=== PATIENT | female | born 2000 | race Caucasian/White ===

== ENCOUNTER 2023-08-03 10:08 | Emergency (ER) | payer BC ==
[2023-08-03 10:28] VITALS: BP 109/70; PULSE 63; RESP 20; TEMP 98.5
--- NOTE | 2023-08-03 10:37 | ED ---
Female Urogenital HPI - General Chief complaint: Urogenital Stated complaint: Pelvic Pain Time Seen by Provider: 08/03/23 10:36 Source: patient, RN notes reviewed Mode of arrival: ambulatory Limitations: no limitations - History of Present Illness Initial comments: Patient is a 23-year-old female presented ER with a chief complaint of pelvic cramping. Patient states this has been going on for the past 2 weeks. Patient's last menstrual cycle was July 05, 2023. Patient is not currently on any form of control. She does report that if she is trying to be . Patient denies any bleeding or vaginal discharge. SHe denies any concern for STDs but would like to be tested. No other complaints. Last Menstrual Period: 07/05/23 - Related Data Allergies Allergy/AdvReac Type Severity Reaction Status Date / Time No Known Allergies Allergy Verified 08/03/23 10:27 Review of Systems ROS Statement: Those systems with pertinent positive or pertinent negative responses have been documented in the HPI. ROS Other: All systems not noted in ROS Statement are negative. Past Medical History Past Medical History: No Reported History History of Any Multi-Drug Resistant Organisms: None Reported Past Surgical History: No Surgical Hx Reported Past Psychological History: No Psychological Hx Reported Smoking Status: Never smoker Past Alcohol Use History: Occasional Past Drug Use History: None Reported General Exam Limitations: no limitations Course Vital Signs 08/03/23 10:25 Temperature 98.5 F Pulse Rate 63 Respiratory 20 Rate Blood Pressure 109/70 O2 Sat by Pulse 99 Oximetry Medical Decision Making - Medical Decision Making Was pt. sent in by a medical professional or institution (, PA, CORPORATE COMPLIANCE OFFICER, urgent care, hospital, or shelter...) When possible be specific @ -No Did you speak to anyone other than the patient for history (EMS, parent, family, police, friend...)? What history was obtained from this source @ -No Did you review nursing and triage notes (agree or disagree)? Why? @ -I reviewed and agree with nursing and triage notes Were old charts reviewed (outside hosp., previous admission, EMS record, old EKG, old radiological studies, urgent care reports/EKG's, shelter records)? Report findings @ -No old charts were reviewed Differential Diagnosis (chest pain, altered mental status, abdominal pain women, abdominal pain men, vaginal bleeding, weakness, fever, dyspnea, syncope, headache, dizziness, GI bleed, back pain, seizure, CVA, palpatations, mental health, musculoskeletal)? @ -Differential Abdominal Pain Women: Appendicitis, Cholecystitis, diverticulosis, ischemic bowel, pancreatitis, hepatitis, UTI, gastroenteritis, AAA, incarcerated hernia, bowel obstruction, constipation, inflammatory bowel, hepatitis, peptic ulcer disease, splenic infarction, perforated viscus, vulvitis, ovarian torsion, PID, kidney stone, placenta abruption, this is not meant to be an all-inclusive list EKG interpreted by me (3pts min.). @ -None X-rays interpreted by me (1pt min.). @ -None done CT interpreted by me (1pt min.). @ -None done U/S interpreted by me (1pt. min.). @ -Transvaginal ultrasound shows no IUP. What testing was considered but not performed or refused? (CT, X-rays, U/S, labs)? Why? @ -None What meds were considered but not given or refused? Why? @ -Patient refused prophylactic antibiotic PID treatment. Did you discuss the management of the patient with other professionals (professionals i.e. , PA, CORPORATE COMPLIANCE OFFICER, lab, RT, psych nurse, director social, ventilation mechanic, teacher, medical officer psychiatry, rn case management)? Give summary @ -No Was smoking cessation discussed for >3mins.? @ -No Was critical care preformed (if so, how long)? @ -No Were there social determinants of health that impacted care today? How? (Homelessness, low income, unemployed, alcoholism, drug addiction, transportation, low edu. Level, literacy, decrease access to med. care, shelter, rehab)? @ -No Was there de-escalation of care discussed even if they declined (Discuss DNR or withdrawal of care, Hospice)? DNR status @ -No What co-morbidities impacted this encounter? (DM, HTN, Smoking, COPD, CAD, Cancer, CVA, ARF, Chemo, Hep., AIDS, mental health diagnosis, sleep apnea, morbid obesity)? @ - Was patient admitted / discharged? Hospital course, mention meds given and route, prescriptions, significant lab abnormalities, going to OR and other pertinent info. @ -Discharge. Patient is a 23-year-old female presented to ER with a chief complaint of pelvic cramping. Patient denied any vaginal bleeding or discharge. Patient's last menstrual cycle was 07/05/23. History and physical exam were completed. Vitals stable. Urine analysis was completed in which HCG was detected. Labs and US were then obtained at that time. Serum quant was 223 and Hgb stable at 13.8. Transvaginal ultrasound shows no IUP at this time which may be indicative of early , ectopic or spontaneous . I discussed lab findings with patient. I advised her that she should follow-up with APPLICATION PROCESSOR in the next 48 hours for repeat blood work. Referral was given. I also discussed with patient that STD testing results will be called back if positive. Patient refused prophylactic antibiotic PID treatment. Patient will be discharged stable condition with follow-up to APPLICATION PROCESSOR. Return parameters were discussed. Patient expressed understanding and agreement with care plan. Undiagnosed new problem with uncertain prognosis? @ -No Drug Therapy requiring intensive monitoring for toxicity (Heparin, Nitro, Insulin, Cardizem)? @ -No Were any procedures done? @ -No Diagnosis/symptom? @ -/ STD check Acute, or Chronic, or Acute on Chronic? @ -Acute Uncomplicated (without systemic symptoms) or Complicated (systemic symptoms)? @ -Uncomplicated Side effects of treatment? @ -No Exacerbation, Progression, or Severe Exacerbation? @ -No Poses a threat to life or bodily function? How? (Chest pain, USA, OR, pneumonia, PE, COPD, DKA, ARF, appy, cholecystitis, CVA, Diverticulitis, Homicidal, Suicidal, threat to staff... and all critical care pts) @ -No - Lab Data Result diagrams: 08/03/23 12:41 08/03/23 12:41 Lab Results 08/03/23 08/03/23 08/03/23 Range/Units 10:45 10:45 12:41 WBC 5.9 (3.8-10.6) k/uL RBC 4.02 (3.80-5.40) m/uL Hgb 13.6 (11.4-16.0) gm/dL Hct 38.0 (34.0-46.0) % MCV 94.4 (80.0-100.0) fL MCH 33.9 (25.0-35.0) pg MCHC 35.9 (31.0-37.0) g/dL RDW 11.9 (11.5-15.5) % Plt Count 240 (150-450) k/uL MPV 7.7 Sodium (137-145) mmol/L Potassium (3.5-5.1) mmol/L Chloride (98-107) mmol/L Carbon Dioxide (22-30) mmol/L Anion Gap mmol/L BUN (7-17) mg/dL Creatinine (0.52-1.04) mg/dL Est GFR (CKD-EPI)AfAm (>60 ml/min/1.73 sqM) Est GFR (CKD-EPI)NonAf (>60 ml/min/1.73 sqM) Glucose (74-99) mg/dL Calcium (8.4-10.2) mg/dL Total Bilirubin (0.2-1.3) mg/dL AST (14-36) U/L ALT (4-34) U/L Alkaline Phosphatase (38-126) U/L Total Protein (6.3-8.2) g/dL Albumin (3.5-5.0) g/dL HCG, Quant mIU/mL Urine Color Light Yellow Urine Appearance Clear (Clear) Urine pH 7.0 (5.0-8.0) Ur Specific [place] 1.021 (1.001-1.035) Urine Protein Negative (Negative) Urine Glucose (UA) Negative (Negative) Urine Ketones Negative (Negative) Urine Blood Negative (Negative) Urine Nitrite Negative (Negative) Urine Bilirubin Negative (Negative) Urine Urobilinogen <2.0 (<2.0) mg/dL Ur Leukocyte Esterase Negative (Negative) Urine HCG, Qual Detected (Not Detectd) Blood Type Blood Type Recheck Bld Type Recheck Status 08/03/23 08/03/23 Range/Units 12:41 12:41 WBC (3.8-10.6) k/uL RBC (3.80-5.40) m/uL Hgb (11.4-16.0) gm/dL Hct (34.0-46.0) % MCV (80.0-100.0) fL MCH (25.0-35.0) pg MCHC (31.0-37.0) g/dL RDW (11.5-15.5) % Plt Count (150-450) k/uL MPV Sodium 138 (137-145) mmol/L Potassium 3.8 (3.5-5.1) mmol/L Chloride 106 (98-107) mmol/L Carbon Dioxide 25 (22-30) mmol/L Anion Gap 7 mmol/L BUN 10 (7-17) mg/dL Creatinine 0.62 (0.52-1.04) mg/dL Est GFR (CKD-EPI)AfAm >90 (>60 ml/min/1.73 sqM) Est GFR (CKD-EPI)NonAf >90 (>60 ml/min/1.73 sqM) Glucose 86 (74-99) mg/dL Calcium 9.4 (8.4-10.2) mg/dL Total Bilirubin 0.7 (0.2-1.3) mg/dL AST 21 (14-36) U/L ALT 17 (4-34) U/L Alkaline Phosphatase 55 (38-126) U/L Total Protein 7.3 (6.3-8.2) g/dL Albumin 4.4 (3.5-5.0) g/dL HCG, Quant 223.6 mIU/mL Urine Color Urine Appearance (Clear) Urine pH (5.0-8.0) Ur Specific [place] (1.001-1.035) Urine Protein (Negative) Urine Glucose (UA) (Negative) Urine Ketones (Negative) Urine Blood (Negative) Urine Nitrite (Negative) Urine Bilirubin (Negative) Urine Urobilinogen (<2.0) mg/dL Ur Leukocyte Esterase (Negative) Urine HCG, Qual (Not Detectd) Blood Type O Negative Blood Type Recheck No Previous Record Bld Type Recheck Status [facility] ONLY - Radiology Data Radiology results: report reviewed, image reviewed Disposition Clinical Impression: , Screen for STD (sexually transmitted disease) Disposition: HOME SELF-CARE Condition: Stable Instructions (If sedation given, give patient instructions): (ED) Additional Instructions: Please follow-up with PCP/APPLICATION PROCESSOR in next 1-2 days. Return to ER for any new or worsening symptoms Is patient prescribed a controlled substance at d/c from ED?: No Referrals: None,Stated [Primary Care Provider] - 1-2 days Leila Caldwell DO [Doctor of Osteopathic Medicine] - 1-2 days Time of Disposition: 13:28
[2023-08-03 11:19] LABS: Appearance,Urine Clear (Clear); Bilirubin,Urine Negative (Negative); Blood,Urine Negative (Negative); Color,Urine Light Yellow; Glucose,Urine (UA) Negative (Negative); Ketones,Urine Negative (Negative); Leukocyte Esterase,Urine Negative (Negative); Nitrite,Urine Negative (Negative); Protein,Urine Negative (Negative); Specific Gravity,Urine 1.021 (1.001-1.035); Urobilinogen,Urine <2.0 mg/dL (<2.0)
[2023-08-03 12:48] LABS: HGB 13.6 gm/dL (11.4-16.0); MCH 33.9 pg (25.0-35.0); MCHC 35.9 g/dL (31.0-37.0); MCV 94.4 fL (80.0-100.0); Mean Platelet Volume 7.7; Platelet Count 240 k/uL (150-450); RBC 4.02 m/uL (3.80-5.40); RDW 11.9 % (11.5-15.5); WBC 5.9 k/uL (3.8-10.6)
--- NOTE | 2023-08-03 12:48 | US ---
EXAMINATION TYPE: Transabdominal DATE OF EXAM: 08/03/2023 12:32 PM COMPARISON: NONE CLINICAL INDICATION: Female, 23 years old with history of cramping; cramping x 2 weeks EXAM PERFORMED: Transabdominal (TA) EXAM MEASUREMENTS: GESTATIONAL AGE / DATING Physician Established: Not yet established Dates by LMP: (4 weeks/1 days) EDC: 04/10/2024 Dates by First Scan: No previous this is first scan Dates by Current Scan for: No IUP seen at this time MATERNAL ANATOMY Uterus: 7.9 x 5.6 x 7.1 cm Right Ovary: 2.8 x 2.0 x 2.0 cm cystic area 1.6 x 1.4 x 1.4 cm. Left Ovary: 3.6 x 2.7 x 3.4 cm cystic area 2.0 x 1.3 x 2.4 cm. Post CDS / Adnexa: wnl Presence of free fluid: no Presence of corpus luteal cyst: yes Presence of subchorionic bleed: no GESTATION / SURVEY IUP: No IUP seen at this time Beta HcG (if available): Not available at this time IMPRESSION: 1. No evidence of intrauterine gestational sac in this patient with a positive B-hCG. This can be see n in early , ectopic and spontaneous . Follow up pelvic ultrasound in 5-7 days and serial beta hCG studies are recommended.
[2023-08-03 13:03] LABS: ALT 17 U/L (4-34); AST 21 U/L (14-36); African American GFR (CKD) >90 (>60 ml/min/1.73 sqM); Albumin 4.4 g/dL (3.5-5.0); Alkaline Phosphatase 55 U/L (38-126); Anion Gap 7 mmol/L; Blood Urea Nitrogen 10 mg/dL (7-17); Calcium 9.4 mg/dL (8.4-10.2); Carbon Dioxide 25 mmol/L (22-30); Chloride 106 mmol/L (98-107); Glucose 86 mg/dL (74-99); Non-African American GFR(CKD) >90 (>60 ml/min/1.73 sqM); Potassium 3.8 mmol/L (3.5-5.1); Sodium 138 mmol/L (137-145); Total Bilirubin 0.7 mg/dL (0.2-1.3); Total Protein 7.3 g/dL (6.3-8.2)
[2023-08-03 13:19] LABS: HCG,Quantitative Serum 223.6 mIU/mL
[2023-08-06 13:57] LABS: N. gonorrhoeae,PCR Negative (Negative)
[2023-08-06 14:20] LABS: C. trachomatis,PCR Negative (Negative)
== END 2023-08-03 13:34 | disposition home or self-care (01) ==
LOC: EC 10:08
DX: O98.319 Other infections with a predominantly sexual mode of transmission complicating pregnancy, unspecified trimester (principal); A64 Unspecified sexually transmitted disease; Z3A.00 Weeks of gestation of pregnancy not specified
CPT/HCPCS: 36415; 76801; 80053; 81003; 81025; 84702; 85027; 86900; 86901; 87491; 87591; 99283

== ENCOUNTER 2024-02-26 15:05 | Outpatient (CLI) | payer BC | END 2024-02-26 16:50 | LOC: FBPOP 15:05 | PROVIDERS: ATTEND Obstetrics & Gynecology | CPT/HCPCS: 59025; 96360; 99214 ==

== ENCOUNTER 2024-04-17 08:08 | Inpatient (IN) | payer BC, OTHER ==
[~2024-04-17 08:08] MED LIST: ROPIVACAINE 5 MG/ML 30 ML VIAL ONE; SODIUM CHLORIDE 0.9% 250 ML BAG ONE; fentaNYL (PF) 50 MCG/ML 5 ML AMP ONE
[2024-04-17] MEDS ORDERED: METHYLERGONOVINE 0.2 MG/ML 1 ML AMP IM PRN (08:36)
[2024-04-17] MEDS ORDERED: OXYTOCIN 10 UNIT/ML 1 ML VIAL IM PRN (08:36)
[2024-04-17] MEDS ORDERED: TRANEXAMIC 1,000 MG/100ML-NACL 1,000 MG in EMPTY BAG 1 BAG IV PRN (08:36)
[2024-04-17] MEDS ORDERED: CARBOPROST TROMETHAMINE 250 MCG/ML 1 ML AMP IM PRN (08:36)
[2024-04-17] MEDS ORDERED: miSOPROStoL 200 MCG TAB RECTAL PRN (08:36)
[2024-04-17] MEDS ORDERED: LIDOCAINE 0.5% (PF) 5 MG/ML (50 ML SDV) SQ PRN (08:36)
[2024-04-17] MEDS ORDERED: TERBUTALINE 1 MG/ML VIAL SQ PRN (08:36)
[2024-04-17] MEDS ORDERED: miSOPROStoL 200 MCG TAB PO PRN (08:36)
[2024-04-17] MEDS: LACTATED RINGERS 1,000 ML IV SCH (08:55)
[2024-04-17 08:56] LABS: Basophils % (A) 0 %; Eosinophils # (A) 0.1 k/uL (0-0.7); Eosinophils % (A) 1 %; HCT 35.6 % (34.0-46.0); HGB 12.6 gm/dL (11.4-16.0); Lymphocytes # (A) 1.6 k/uL (1.0-4.8); Lymphocytes % (A) 16 %; MCHC 35.3 g/dL (31.0-37.0); MCV 93.7 fL (80.0-100.0); Mean Platelet Volume 7.8; Monocytes # (A) 0.6 k/uL (0-1.0); Monocytes % (A) 6 %; Neutrophils # (A) 7.4 k/uL (1.3-7.7); Neutrophils % (A) 74 %; Platelet Count 302 k/uL (150-450); RDW 13.3 % (11.5-15.5)
--- NOTE | 2024-04-17 08:56 | P.HPOB ---
History of Present Illness H&P Date: 04/17/24 Chief Complaint: leaking of fluid Ms. Alonso is 23 year old at 41 weeks and 0 days with EDC of 04/10/2024 by LMP consistent with an 8 week US who presents with gross rupture of membranes at 630 this morning with clear fluid noted. She is sophy every 3-4 minutes and her cervical exam is 1.5/60/-2 per the OB RN. Her has been essentially uncomplicated aside from a maternal history of genital herpes for which she has been taking Valtrex prophylaxis since 36 weeks. In addition, the patient is Rh negative and received rhogam at 28 weeks. The fetus is estimated in the 47%ile based on a 31 week and 4 day growth US. work-up: blood type O negative, antibody screen negative, rubella immune, VDRL non-reactive, HBsAg negative, HIV negative, HCV Ab negative, gonorrhea negative, chlamydia negative, 1 hour GTT wnl, GBS negative. s/p TDap. Past Medical History Past Medical History: No Reported History History of Any Multi-Drug Resistant Organisms: None Reported Past Surgical History: No Surgical Hx Reported Past Psychological History: No Psychological Hx Reported Smoking Status: Never smoker Past Alcohol Use History: Occasional Past Drug Use History: None Reported Medications and Allergies Allergies Allergy/AdvReac Type Severity Reaction Status Date / Time No Known Allergies Allergy Verified 04/17/24 08:31 Exam Intake and Output 04/16/24 04/17/24 04/17/24 22:59 06:59 14:59 Other: Weight 95.254 kg Focused physical exam is performed. This is a healthy-appearing in no apparent distress. Breathing is non-labored. Abdomen is gravid and non-tender. Cervical exam is 1.5/60/-2/anterior. Clear amniotic fluid noted. Extremities non-tender and non-edematous. heart tones are Category I and tocometer is graphing contractions every 2-4 minutes. Assessment and Plan Assessment: 23 year old at 41 weeks presenting with spontaneous rupture of membranes and regular uterine contractions, in labor Plan: Admit, clear liquid diet, IV nubain prn, epidural once making cervical change, continuous EFM and tocometer. Anticipate vaginal delivery.
[2024-04-17] MEDS: NALBUPHINE 10 MG/ML (10 ML MDV) IV PRN (09:01)
[2024-04-17] MEDS ORDERED: SODIUM CHLORIDE 0.9% 250 ML BAG ONE (10:30)
[2024-04-17] MEDS ORDERED: ROPIVACAINE 5 MG/ML 30 ML VIAL ONE (10:30)
[2024-04-17] MEDS ORDERED: fentaNYL (PF) 50 MCG/ML 5 ML AMP ONE (10:30)
[2024-04-17] MEDS: OXYTOCIN 30 UNITS/500 ML NS 30 UNIT in SALINE 1 500ML.BAG IV SCH (13:30)
[2024-04-17] MEDS: ACETAMINOPHEN IV (For NPO) 1,000 MG in EMPTY BAG 1 BAG IVPB ONE (22:54)
[2024-04-18] MEDS ORDERED: SIMETHICONE 80 MG CHEWABLE PO PRN (00:19)
[2024-04-18] MEDS ORDERED: BENZOCAINE/MENTHOL SPRAY 1 GM/SPRAY AEROSOL TOPICAL PRN (00:19)
[2024-04-18] MEDS ORDERED: diphenhydrAMINE 50 MG/ML 1 ML VIAL IVP PRN ×2 (00:19)
[2024-04-18] MEDS ORDERED: HYDROCORTISONE 2.5% RECTAL CREAM 30 GM TUBE RECTAL PRN (00:19)
[2024-04-18] MEDS ORDERED: ZOLPIDEM 5 MG TAB PO PRN (00:19)
[2024-04-18] MEDS ORDERED: LANOLIN CREAM 1 GM TUBE TOPICAL PRN (00:19)
[2024-04-18] MEDS ORDERED: diphenhydrAMINE 50 MG CAP PO PRN (00:19)
[2024-04-18] MEDS ORDERED: diphenhydrAMINE 25 MG CAP PO PRN (00:19)
--- NOTE | 2024-04-18 00:19 | P.PROBDLV ---
Vaginal Delivery Note - . Vaginal Delivery Note: DATE OF SERVICE: 04/18/2024 PROCEDURE: Normal Vaginal Delivery ATTENDING: Dr. Kasandra Beth MD ESTIMATED BLOOD LOSS: 150 mL FINDINGS: VFI, Apgars 8/9. Weight 7 pounds and 14 ounces (3575 grams) PROCEDURE: Ms. Alonso is a 23 year old at 41 weeks gestation presenting to labor and delivery with spontaneous rupture of membranes at 630 with clear amniotic fluid noted. The has been complicated by maternal history of HSV (on prophylaxis) and Rh negative status. For further details, please review the admitting H&P. The patient received epidural anesthesia per her request. Pitocin augmentation was started. The patient was completely dilated at 2232. She pushed effectively with Category I to II heart tones. She brought the head to a crown and delivered the head over the next push over an intact perineum followed by the shoulders and body. A viable female infant was delivered at 2353. The was placed on the maternal abdomen and bulb suctioned. The was noted to be spontaneously crying. Cord was clamped and cut after a 30-second delay. The was handed off to the pediatric team. Placenta was delivered whole with gentle cord traction at 2355. Oxytocin was started to facilitate uterine tone. Uterine fundus was found to be firm and below the umbilicus upon fundal massage. Thorough examination of the cervix, vagina, periurethral area, and perineum revealed a first degree laceration and bilateral periurethral lacerations. These areas were infiltrated with lidocaine and repaired with 2-0 and 3-0 Vicryl respectively. The patient is stable and allowed to begin the bonding process.
[2024-04-18] MEDS: ROPIVACAINE 225 MG, fentaNYL (PF). 450 MCG in SODIUM CHLORIDE 0.9% 171 ML EPIDURAL ONE (00:39)
[2024-04-18] MEDS: IBUPROFEN 800 MG TAB PO SCH (01:21)
--- NOTE | 2024-04-18 09:02 | P.PNOBGVD ---
Subjective - Subjective Principal diagnosis: POD#1 s/p normal vaginal delivery Interval history: The patient is doing well this morning and had no acute events overnight. She has no complaints this morning. She reports minimal lochia, passing flatus, voiding without difficulty, ambulating, and eating/drinking without nausea or vomiting. She is her infant without difficulty. She denies chest pain, shortness of breathing, fevers, or chills overnight. She denies pain or swelling in the legs. Patient reports: Reports appetite normal, Reports voiding normally, Reports pain well controlled, Reports ambulating normally : doing well, nursing well Objective - Latest Vital Signs Latest vital signs: Vital Signs Temp Pulse Resp BP Pulse Ox 04/18/24 08:00 97.9 F 94 16 108/66 99 04/18/24 04:13 90 16 117/56 94 L 04/18/24 02:13 104 H 16 119/58 96 04/18/24 01:58 93 16 116/59 94 L 04/18/24 01:43 101 H 124/58 95 04/18/24 01:28 102 H 16 122/63 97 04/18/24 01:13 94 16 110/58 94 L 04/18/24 00:58 90 16 124/57 96 04/18/24 00:43 97 16 127/64 96 04/18/24 00:25 115 H 16 142/73 95 04/18/24 00:13 97.1 F L 113 H 16 130/60 95 04/17/24 09:07 97.0 F L 98 17 137/72 Intake and Output 04/17/24 04/18/24 04/18/24 22:59 06:59 14:59 Output Total 216 Balance -216 Output: Output, Quantitative 216 Blood Loss Other: # Voids 2 - Exam Extremities: Present: normal Abdomen: Present: normal appearance, soft Uterus: Present: normal, firm Assessment and Plan Assessment: 23 year old now PPD#1 s/p normal spontaneous vaginal delivery Plan: 1. . patient meeting all milestones appropriately. 2. viable female infant. at bedside, doing well, nursing well. Dispo: Anticipate discharge home tomorrow.
[2024-04-18] MEDS: SENNOSIDES-DOCUSATE SODIUM 1 EACH TAB PO SCH (09:12)
[2024-04-18] MEDS: ACETAMINOPHEN TAB 500 MG TAB PO SCH (12:08)
[2024-04-18] MEDS: Rhogam IMMUNE GLOBULIN 1,500 UNIT/1 ML IM ONE (12:41)
[2024-04-19 07:50] LABS: Basophils % (A) 0 %; Eosinophils # (A) 0.3 k/uL (0-0.7); Eosinophils % (A) 3 %; HCT 33.8 % (34.0-46.0); HGB 11.2 gm/dL (11.4-16.0); Lymphocytes # (A) 2.2 k/uL (1.0-4.8); Lymphocytes % (A) 21 %; Mean Platelet Volume 7.4; Monocytes # (A) 0.6 k/uL (0-1.0); Monocytes % (A) 6 %; Neutrophils # (A) 6.9 k/uL (1.3-7.7); Neutrophils % (A) 67 %; Platelet Count 279 k/uL (150-450); RBC 3.49 m/uL (3.80-5.40); RDW 13.1 % (11.5-15.5); WBC 10.3 k/uL (3.8-10.6)
[2024-04-19 09:40] VITALS: BP 115/72; PULSE 81; RESP 18; TEMP 97.7
--- NOTE | 2024-04-19 11:39 | P.DS ---
Providers Date of admission: 04/17/24 08:08 Expected date of discharge: 04/19/24 Attending physician: Kasandra Beth MD Primary care physician: Stated None - Discharge Diagnosis(es) (1) (normal spontaneous vaginal delivery) Current Visit: Yes Status: Acute Hospital Course: Patient presented with some trace rupture membranes. She underwent a normal vaginal delivery. course has been uneventful. She denies nausea, vomiting, chest pain, shortness of breath or calf pain. Patient will be discharged home day #2 in stable condition to follow-up with Dr. sal in 6 weeks. Plan - Discharge Summary New Discharge Prescriptions: New Ibuprofen [Motrin] 800 mg PO Q8HR #30 tab No Action valACYclovir HCL [Valtrex] 500 mg PO BID Vit No.179/Iron/Folic [ Tablet] 1 each PO DAILY Discharge Medication List Vit No.179/Iron/Folic [ Tablet] 1 each PO DAILY 04/17/24 [History] valACYclovir HCL [Valtrex] 500 mg PO BID 04/17/24 [History] Ibuprofen [Motrin] 800 mg PO Q8HR #30 tab 04/19/24 [Rx] Follow up Appointment(s)/Referral(s): Kasandra Beth MD [STAFF PHYSICIAN] - 06/03/24 10:15 am Discharge Disposition: HOME SELF-CARE
== END 2024-04-19 13:30 | disposition home or self-care (01) | DRG 807 ==
LOC: 4FBP 08:08
PROVIDERS: ADMIT Obstetrics & Gynecology; ATTEND Obstetrics & Gynecology
PROC: 0HQ9XZZ Repair Perineum Skin, External Approach (ICD-10-PCS; principal; 2024-04-18)
PROC: 10E0XZZ Delivery of Products of Conception, External Approach (ICD-10-PCS; 2024-04-18)
PROC: 0UQMXZZ Repair Vulva, External Approach (ICD-10-PCS; 2024-04-18)
DX: O48.0 Post-term pregnancy (principal); Z37.0 Single live birth; O26.893 Other specified pregnancy related conditions, third trimester; O70.0 First degree perineal laceration during delivery; O71.82 Other specified trauma to perineum and vulva; Z3A.41 41 weeks gestation of pregnancy; Z67.41 Type O blood, Rh negative
CPT/HCPCS: 85025; 85461; 86850; 86900; 86901